=== PATIENT | male | born 1965 | race Caucasian/White ===

== ENCOUNTER 2019-02-05 15:57 | Emergency (ER) | payer MEDICARE, MEDICAID ==
[~2019-02-05] VITALS: Ht 170.2 cm; Wt 125.9 kg
[~2019-02-05 15:57] MED LIST: ALBU8.5H8 INH; CARV3.12 PO; CLON0.3T PO; CLON0.5T23 PO; CLOP75TA15 PO; DILT300C53 PO; DIPH-423 PO; DOCU-273 PO; ERGO500041 PO; FURO-149 PO; HYDR100T27 PO; LANTUS SQ; LEVO100T PO; LINA145C PO; RIFA550T PO; ROSU10TA2 PO; VALS40TA11 PO
[2019-02-05 16:32] VITALS: BP 138/77
== END 2019-02-05 16:35 | disposition home or self-care (01) ==
LOC: ER 15:58
DX: I13.2 Hypertensive heart and chronic kidney disease with heart failure and with stage 5 chronic kidney disease, or end stage renal disease (principal); E11.22 Type 2 diabetes mellitus with diabetic chronic kidney disease; N18.6 End stage renal disease; I50.9 Heart failure, unspecified; J44.9 Chronic obstructive pulmonary disease, unspecified; Z79.4 Long term (current) use of insulin; Z99.2 Dependence on renal dialysis; Z98.890 Other specified postprocedural states; Z98.61 Coronary angioplasty status; Z60.2 Problems related to living alone
CPT/HCPCS: 93005; 99283

== ENCOUNTER 2019-05-10 09:22 | Inpatient (IN) | payer MEDICARE, MEDICAID ==
[~2019-05-10] VITALS: Ht 170.2 cm; Wt 120.0 kg
--- NOTE | 2019-05-10 09:39 | NUR ---
Dr. Shankar at bedside.
[2019-05-10 10:00] LABS: BASOPHILS % (AUTO) 0.5 % (0-1); EOSINOPHILS # (AUTO) 0.1 X10'3 (0-0.9); EOSINOPHILS % (AUTO) 1.4 % (0-6); HEMATOCRIT 41.1 % (42.0-52.0); HEMOGLOBIN 14.6 g/dl (14.0-17.9); LYMPHOCYTES # (AUTO) 0.7 X10'3 (1.1-4.8); LYMPHOCYTES % (AUTO) 8.3 % (21-51); MEAN CORPUSCULAR HGB CONC 35.5 g/dL (33.0-36.5); MEAN CORPUSCULAR VOLUME 93.1 FL (78-98); MEAN PLATELET VOLUME 7.2 FL (7.4-10.4); MONOCYTES # (AUTO) 0.7 X10'3 (0-0.9); MONOCYTES % (AUTO) 7.7 % (2-12); NEUTROPHILS # (AUTO) 7.4 X10'3 (1.8-7.7); NEUTROPHILS % (AUTO) 82.1 % (42-75); PLATELET COUNT 182 X10'3 (140-440); RED BLOOD COUNT 4.42 X10'6 (4.70-6.10); RED CELL DISTRIBUTION WIDTH 15.1 % (11.5-14.5)
[2019-05-10 10:19] LABS: PARTIAL THROMBOPLASTIN TIME 27 SECONDS (22-32)
[2019-05-10 10:20] LABS: ALANINE AMINOTRANSFERASE 8 U/L (12-78); ALBUMIN 3.9 G/DL (3.4-5.0); ALBUMIN/GLOBULIN RATIO 0.8 (1.1-1.5); ALKALINE PHOSPHATASE 112 IU/L (46-116); ANION GAP 12 (8-16); ASPARTATE AMINO TRANSFERASE 10 U/L (10-37); BILIRUBIN,TOTAL 0.6 MG/DL (0.1-1.0); BLOOD UREA NITROGEN 54 MG/DL (7-18); BUN/CREATININE RATIO 6.7 (5.4-32.0); CALCIUM 8.9 MG/DL (8.5-10.1); CHLORIDE 98 MMOL/L (99-107); CREATININE 8.07 MG/DL (0.60-1.10); GLUCOSE 200 MG/DL (70-104); POTASSIUM 4.3 MMOL/L (3.5-5.1); SODIUM 138 MMOL/L (135-145); TOTAL CARBON DIOXIDE 28.2 MMOL/L (24-32); TOTAL PROTEIN 8.5 G/DL (6.4-8.2); eGFR 7 ML/MIN
[2019-05-10 10:37] LABS: MAGNESIUM 1.9 MG/DL (1.5-2.4); PHOSPHORUS 5.7 MG/DL (2.3-4.5)
[2019-05-10] MEDS ORDERED: iohexol 350MG/ML 100ml bottle IV ONE (11:01)
[2019-05-10] MEDS ORDERED: CefTRIAXone/D5W-Rocephin 1gm 50 ML IV ONE (11:05)
[2019-05-10 11:11] LABS: CLARITY,URINE CLEAR (Clear); COLOR,URINE YELLOW (Yellow); GLUCOSE, URINE 250 mg/dl (Neg); KETONES,URINE NEGATIVE (Neg); LEUKOCYTE ESTERASE ,URINE NEGATIVE (Neg); NITRITES, URINE NEGATIVE (Neg); OCCULT BLOOD,URINE SMALL (Neg); PROTEIN,URINE 100 mg/dl (Neg); UA COLLECTION TYPE NON-SPECIFIED
[2019-05-10 11:34] LABS: SQUAMOUS EPITHELIAL CELL,UR FEW /LPF (FEW)
[2019-05-10 11:36] LABS: BACTERIA,URINE 1+ /HPF (Neg); WBC,URINE 30-50 /HPF (0-4)
[2019-05-10] MEDS ORDERED: normal saline 1000ml 250 ML IV PRN (12:13)
[2019-05-10] MEDS ORDERED: heparin 1,000unit/ml 10ml vial 10 ML IV ONE (12:13)
[2019-05-10] MEDS ORDERED: heparin 1,000 units/ml 10ml inj IV ONE (12:15)
[2019-05-10] MEDS ORDERED: acetaminophen 325mg tablet PO PRN ×2 (12:25)
[2019-05-10] MEDS ORDERED: HYDROcodone/acetaminophen 5mg/325mg tablet PO PRN (12:25)
[2019-05-10] MEDS ORDERED: morphine 2 MG/ML inj. syringe IV PRN ×2 (12:25)
[2019-05-10] MEDS ORDERED: ondansetron/PF 4mg/2ml inj IV PRN (12:25)
[2019-05-10] MEDS ORDERED: magnesium hydroxide 30ml (MOM) UD suspension PO PRN (12:25)
[2019-05-10] MEDS ORDERED: HYDROcodone/acetaminophen 10/325mg tab PO PRN (12:25)
[2019-05-10] MEDS ORDERED: mag hydrox/Alum hydrox/simeth 30ml oral suspension PO PRN (12:25)
[2019-05-10] MEDS ORDERED: LOSA100T57 PO (12:29)
[2019-05-10] MEDS ORDERED: MULT1TAB70 PO (12:31)
[2019-05-10] MEDS ORDERED: CETI10TA14 PO (12:36)
[2019-05-10] MEDS ORDERED: GABA-532 PO (12:37)
[2019-05-10] MEDS ORDERED: BUSP10TA3 PO (12:38)
[2019-05-10] MEDS ORDERED: CALC667C5 PO (12:39)
[2019-05-10] MEDS ORDERED: CALC667T6 PO (12:40)
[2019-05-10] MEDS ORDERED: CINA30TA PO (12:44)
[2019-05-10] MEDS ORDERED: TRAZ300T2 PO (12:46)
[2019-05-10] MEDS ORDERED: MESSAGE TO PHARMACY PO ONE (12:55)
[2019-05-10] MEDS ORDERED: dextrose ORAL solution 15 GM/59 ML bottle PO PRN ×2 (12:55)
[2019-05-10] MEDS ORDERED: dextrose 50%-water 50ml dispensing syringe IV PRN ×2 (12:55)
[2019-05-10] MEDS ORDERED: glucagon, human recombinant 1mg kit SUBCUT PRN (12:55)
[2019-05-10] MEDS ORDERED: docusate sod 100mg capsule PO PRN (13:20)
[2019-05-10] MEDS ORDERED: albuterol 2.5 MG/3 ML nebule NEB PRN (13:45)
--- NOTE | 2019-05-10 13:54 | NUR ---
Patient in room ED 6. I have received report from Alejandra in ED and had the opportunity to ask questions and assume patient care.
[2019-05-10 14:12] VITALS: BP 180/88
--- NOTE | 2019-05-10 14:19 | NUR ---
Pt arrived on the floor, spent time speaking with him, tucked in, provided comfort measures.
[2019-05-10 17:00] VITALS: BP 185/86
--- NOTE | 2019-05-10 18:17 | NUR ---
Problems reprioritized. Patient report given, questions answered & plan of care reviewed with Iris Easley
[2019-05-10] MEDS: calcium acetate 667mg (PhosLO) capsule PO SCH (18:37)
[2019-05-10] MEDS: hydrALAZINE 25 MG tablet PO SCH (20:26)
[2019-05-10] MEDS: cloNIDine 0.1 mg tablet PO SCH (20:27)
[2019-05-10] MEDS: diphenhydrAMINE 25mg capsule PO SCH (20:27)
[2019-05-10] MEDS: gabapentin 300mg capsule PO SCH (20:27)
[2019-05-10] MEDS: busPIRone 5mg tablet PO SCH (20:28)
[2019-05-10] MEDS: carVEDilol 12.5mg tablet PO SCH (20:28)
[2019-05-10] MEDS: traZODone 150mg tablet PO SCH (20:29)
[2019-05-10] MEDS: heparin, porcine 5000 units/ml vial SQ SCH (20:30)
[2019-05-10] MEDS ORDERED: calcium acetate 667mg (PhosLO) capsule PO PRN (21:00)
[2019-05-10] MEDS ORDERED: insulin glargine (Lantus) pen - multi-dose SQ SCH (21:00)
[2019-05-10] MEDS: insulin glargine (Lantus) pen - multi-dose SQ SCH (21:19)
[2019-05-10 22:00] VITALS: BP 192/88
[2019-05-10 23:00] VITALS: BP 200/90
--- NOTE | 2019-05-10 23:03 | NUR ---
At 2200 BP was 192/88. Night meds included Hydralazine, Clonidine and other BP medication. re took BP at 2300 for 200/90. Called MD to notify of increase BP and HR. Dr. Ruvalcaba stated that hospitalist service does not usually have dialysis patients and that patient probably lives with very high BP at all times. No new orders.
--- NOTE | 2019-05-11 01:29 | NUR ---
reviewed and agree with [facility]N assessment.
[2019-05-11 05:12] LABS: BASOPHILS % (AUTO) 0.5 % (0-1); EOSINOPHILS # (AUTO) 0.2 X10'3 (0-0.9); EOSINOPHILS % (AUTO) 2.2 % (0-6); HEMATOCRIT 37.1 % (42.0-52.0); HEMOGLOBIN 13.1 g/dl (14.0-17.9); LYMPHOCYTES # (AUTO) 1.3 X10'3 (1.1-4.8); LYMPHOCYTES % (AUTO) 14.4 % (21-51); MEAN CORPUSCULAR HEMOGLOBIN 33.4 PG (27.0-31.0); MEAN CORPUSCULAR HGB CONC 35.4 g/dL (33.0-36.5); MEAN CORPUSCULAR VOLUME 94.5 FL (78-98); MEAN PLATELET VOLUME 7.4 FL (7.4-10.4); MONOCYTES % (AUTO) 10.6 % (2-12); NEUTROPHILS # (AUTO) 6.7 X10'3 (1.8-7.7); NEUTROPHILS % (AUTO) 72.3 % (42-75); PLATELET COUNT 190 X10'3 (140-440); RED BLOOD COUNT 3.92 X10'6 (4.70-6.10); RED CELL DISTRIBUTION WIDTH 15.3 % (11.5-14.5); WHITE BLOOD COUNT 9.2 X10'3 (4.5-11.0)
[2019-05-11 05:46] LABS: ALBUMIN 3.3 G/DL (3.4-5.0); ANION GAP 12 (8-16); BLOOD UREA NITROGEN 58 MG/DL (7-18); BUN/CREATININE RATIO 6.7 (5.4-32.0); CALCIUM 9.6 MG/DL (8.5-10.1); CHLORIDE 98 MMOL/L (99-107); CREATININE 8.66 MG/DL (0.60-1.10); GLUCOSE 149 MG/DL (70-104); POTASSIUM 4.8 MMOL/L (3.5-5.1); SODIUM 135 MMOL/L (135-145); TOTAL CARBON DIOXIDE 24.8 MMOL/L (24-32); eGFR 6 ML/MIN
[2019-05-11 06:00] VITALS: BP 192/88
--- NOTE | 2019-05-11 06:28 | NUR ---
Problems reprioritized. Patient report given, questions answered & plan of care reviewed with MINDY Sandy.
[2019-05-11] MEDS: cetirizine 10mg tablet PO SCH (07:29)
[2019-05-11] MEDS: calcium acetate 667mg (PhosLO) capsule PO SCH ×3 (07:30→17:51)
[2019-05-11] MEDS: diltiazem CD 120mg capsule (once-daily) PO SCH (07:30)
[2019-05-11] MEDS: multivitamins, therapeutics tablet PO SCH (07:30)
[2019-05-11] MEDS: diltiazem CD 180mg cap (once-daily) PO SCH (07:32)
[2019-05-11] MEDS: busPIRone 5mg tablet PO SCH ×3 (07:32→20:56)
[2019-05-11] MEDS: losartan 50mg tablet PO SCH (07:32)
[2019-05-11] MEDS: clopidogrel 75mg tablet PO SCH (07:33)
[2019-05-11] MEDS: atorvastatin 20mg tablet PO SCH (07:33)
[2019-05-11] MEDS: furosemide 40mg tablet PO SCH (07:33)
[2019-05-11] MEDS: carVEDilol 12.5mg tablet PO SCH ×2 (07:34→20:00)
[2019-05-11] MEDS: cloNIDine 0.1 mg tablet PO SCH ×2 (07:34→20:00)
[2019-05-11] MEDS: hydrALAZINE 25 MG tablet PO SCH ×3 (07:34→21:00)
[2019-05-11] MEDS: CefTRIAXone/D5W-Rocephin 1gm 50 ML IV SCH (07:35)
[2019-05-11] MEDS: gabapentin 300mg capsule PO SCH ×3 (07:35→20:56)
[2019-05-11] MEDS: levoTHYROXINE 100mcg tablet PO SCH (07:39)
[2019-05-11] MEDS: heparin, porcine 5000 units/ml vial SQ SCH ×2 (07:39→20:55)
[2019-05-11] MEDS ORDERED: Linaclotide (Linzess) 1 CAP PO SCH (08:00)
[2019-05-11 10:00] VITALS: BP 181/82
--- NOTE | 2019-05-11 10:24 | NUR ---
F/u for DM consult: Patient's A1c is 6.8, DM education not warranted at this time. Will continue to follow. Addendum: 05/11/19 at [address] Amended: Links added.
[2019-05-11] MEDS: insulin Lispro (HumaLOG) vial - multi-dose SQ SCH ×2 (13:57→18:50)
[2019-05-11 18:00] VITALS: BP 108/54
--- NOTE | 2019-05-11 18:15 | NUR ---
Received report from Vika GUILLEN. assumed care of patient.
--- NOTE | 2019-05-11 20:00 | NUR ---
Patient refused CPAP machine in this facility and stated that someone could bring his CPAP machine tomorrow.
--- NOTE | 2019-05-11 20:00 | NUR ---
Around this time I called the automation developer physician for patient to let her know that the sbp dropped to 97/48 and that pt's b/p medications were held. [facility] COORDINATOR said b/p is ok for now but if it drops lower to call her and she will give orders.
[2019-05-11 20:30] VITALS: BP 97/48
[2019-05-11] MEDS: lactobacillus rhamnosus 10,000 MMU CELLS/CAPSULE PO SCH (20:56)
[2019-05-11] MEDS: diphenhydrAMINE 25mg capsule PO SCH (20:57)
[2019-05-11] MEDS: traZODone 150mg tablet PO SCH (20:58)
[2019-05-11] MEDS: insulin glargine (Lantus) pen - multi-dose SQ SCH (21:05)
[2019-05-11 22:00] VITALS: BP 127/51
[2019-05-12 05:31] LABS: BASOPHILS # (AUTO) 0.1 X10'3 (0-0.2); BASOPHILS % (AUTO) 0.8 % (0-1); EOSINOPHILS # (AUTO) 0.2 X10'3 (0-0.9); EOSINOPHILS % (AUTO) 2.5 % (0-6); HEMATOCRIT 35.9 % (42.0-52.0); HEMOGLOBIN 12.5 g/dl (14.0-17.9); LYMPHOCYTES # (AUTO) 1.1 X10'3 (1.1-4.8); LYMPHOCYTES % (AUTO) 11.8 % (21-51); MEAN CORPUSCULAR HEMOGLOBIN 33.3 PG (27.0-31.0); MEAN CORPUSCULAR VOLUME 95.3 FL (78-98); MEAN PLATELET VOLUME 7.5 FL (7.4-10.4); NEUTROPHILS # (AUTO) 7.3 X10'3 (1.8-7.7); NEUTROPHILS % (AUTO) 74.9 % (42-75); PLATELET COUNT 200 X10'3 (140-440); RED BLOOD COUNT 3.76 X10'6 (4.70-6.10); RED CELL DISTRIBUTION WIDTH 15.5 % (11.5-14.5); WHITE BLOOD COUNT 9.7 X10'3 (4.5-11.0)
[2019-05-12 05:52] LABS: ALBUMIN 3.2 G/DL (3.4-5.0); ANION GAP 6 (8-16); BLOOD UREA NITROGEN 37 MG/DL (7-18); BUN/CREATININE RATIO 5.8 (5.4-32.0); CHLORIDE 99 MMOL/L (99-107); CREATININE 6.34 MG/DL (0.60-1.10); GLUCOSE 146 MG/DL (70-104); POTASSIUM 4.3 MMOL/L (3.5-5.1); SODIUM 136 MMOL/L (135-145); TOTAL CARBON DIOXIDE 30.8 MMOL/L (24-32); eGFR 9 ML/MIN
[2019-05-12 06:00] VITALS: BP 106/30
--- NOTE | 2019-05-12 06:21 | NUR ---
Gave report to Sima GUILLEN.
[2019-05-12] MEDS: gabapentin 300mg capsule PO SCH (07:40)
[2019-05-12] MEDS: clopidogrel 75mg tablet PO SCH (07:40)
[2019-05-12] MEDS: CefTRIAXone/D5W-Rocephin 1gm 50 ML IV SCH (07:40)
[2019-05-12] MEDS: atorvastatin 20mg tablet PO SCH (07:40)
[2019-05-12] MEDS: lactobacillus rhamnosus 10,000 MMU CELLS/CAPSULE PO SCH (07:40)
[2019-05-12] MEDS: multivitamins, therapeutics tablet PO SCH (07:40)
[2019-05-12] MEDS: carVEDilol 12.5mg tablet PO SCH (07:40)
[2019-05-12] MEDS: diltiazem CD 180mg cap (once-daily) PO SCH (07:40)
[2019-05-12] MEDS: diltiazem CD 120mg capsule (once-daily) PO SCH (07:41)
[2019-05-12] MEDS: levoTHYROXINE 100mcg tablet PO SCH (07:41)
[2019-05-12] MEDS: calcium acetate 667mg (PhosLO) capsule PO SCH (07:41)
[2019-05-12] MEDS: cetirizine 10mg tablet PO SCH (07:41)
[2019-05-12] MEDS: busPIRone 5mg tablet PO SCH (07:41)
[2019-05-12] MEDS: furosemide 40mg tablet PO SCH (07:41)
[2019-05-12] MEDS: losartan 50mg tablet PO SCH (07:42)
[2019-05-12] MEDS: cloNIDine 0.1 mg tablet PO SCH (07:42)
[2019-05-12] MEDS: heparin, porcine 5000 units/ml vial SQ SCH (07:42)
[2019-05-12] MEDS: hydrALAZINE 25 MG tablet PO SCH (07:42)
[2019-05-12] MEDS ORDERED: SULF1TAB49 PO (08:58)
== END 2019-05-12 10:08 | disposition home or self-care (01) | DRG 690 ==
LOC: ER 09:22 → ED HOLD 12:32 → ORTHO 4S 14:15
PROVIDERS: ADMIT Internal Medicine; ATTEND Internal Medicine
PROC: B32T1ZZ Computerized Tomography (CT Scan) of Left Pulmonary Artery using Low Osmolar Contrast (ICD-10-PCS; 2019-05-10)
PROC: B3201ZZ Computerized Tomography (CT Scan) of Thoracic Aorta using Low Osmolar Contrast (ICD-10-PCS; 2019-05-10)
PROC: B32S1ZZ Computerized Tomography (CT Scan) of Right Pulmonary Artery using Low Osmolar Contrast (ICD-10-PCS; 2019-05-10)
PROC: 5A1D70Z Performance of Urinary Filtration, Intermittent, Less than 6 Hours Per Day (ICD-10-PCS; principal; 2019-05-11)
DX: N10 Acute pyelonephritis (principal); I13.2 Hypertensive heart and chronic kidney disease with heart failure and with stage 5 chronic kidney disease, or end stage renal disease; I31.3 Pericardial effusion (noninflammatory); Z68.41 Body mass index [BMI] 40.0-44.9, adult; N18.6 End stage renal disease; E87.70 Fluid overload, unspecified; E03.9 Hypothyroidism, unspecified; E11.22 Type 2 diabetes mellitus with diabetic chronic kidney disease; E11.42 Type 2 diabetes mellitus with diabetic polyneuropathy; E66.01 Morbid (severe) obesity due to excess calories; F41.9 Anxiety disorder, unspecified; G47.33 Obstructive sleep apnea (adult) (pediatric); R91.1 Solitary pulmonary nodule; E78.5 Hyperlipidemia, unspecified; B95.7 Other staphylococcus as the cause of diseases classified elsewhere; I50.9 Heart failure, unspecified; J44.9 Chronic obstructive pulmonary disease, unspecified; Z88.0 Allergy status to penicillin; Z88.1 Allergy status to other antibiotic agents; Z79.02 Long term (current) use of antithrombotics/antiplatelets; Z79.4 Long term (current) use of insulin; Z79.899 Other long term (current) drug therapy; Z83.3 Family history of diabetes mellitus; Z87.891 Personal history of nicotine dependence; Z89.512 Acquired absence of left leg below knee; Z99.2 Dependence on renal dialysis; Z86.718 Personal history of other venous thrombosis and embolism; Z98.61 Coronary angioplasty status
CPT/HCPCS: 36415; 71045; 71260; 71275; 80048; 80053; 81001; 82948; 83036; 83605; 83735; 84100; 84484; 85025; 85610; 85730; 87040; 87077; 87081; 87088; 87186; 93005; 93306; 94760; 96365; 99291; G0257; G0378; J0696; J1644; J1815; J2405; Q0163; Q9967

== ENCOUNTER 2020-06-06 16:23 | Emergency (ER) | payer MEDICARE, MEDICAID ==
[~2020-06-06] VITALS: Ht 170.2 cm; Wt 122.3 kg
[~2020-06-06 16:23] MED LIST changes: +BUSP10TA3 PO; +CALC667C5 PO; +CALC667T6 PO; +CETI10TA14 PO; +CINA30TA PO; -CLON0.5T23 PO; -ERGO500041 PO; +GABA-532 PO; +LOSA100T57 PO; +MULT1TAB70 PO; -RIFA550T PO; +TRAZ300T2 PO; -VALS40TA11 PO
[2020-06-06 17:44] LABS: BASOPHILS # (AUTO) 0.2 X10'3 (0-0.2); BASOPHILS % (AUTO) 1.5 % (0-1); EOSINOPHILS # (AUTO) 0.1 X10'3 (0-0.9); EOSINOPHILS % (AUTO) 0.8 % (0-6); HEMATOCRIT 39.3 % (42.0-52.0); HEMOGLOBIN 13.7 g/dl (14.0-17.9); LYMPHOCYTES % (AUTO) 9.4 % (21-51); MEAN CORPUSCULAR HEMOGLOBIN 34.2 PG (27.0-31.0); MEAN CORPUSCULAR HGB CONC 34.9 g/dL (33.0-36.5); MEAN CORPUSCULAR VOLUME 97.8 FL (78-98); MEAN PLATELET VOLUME 7.7 FL (7.4-10.4); MONOCYTES # (AUTO) 0.6 X10'3 (0-0.9); NEUTROPHILS # (AUTO) 8.7 X10'3 (1.8-7.7); NEUTROPHILS % (AUTO) 82.3 % (42-75); PLATELET COUNT 250 X10'3 (140-440); RED BLOOD COUNT 4.01 X10'6 (4.70-6.10); RED CELL DISTRIBUTION WIDTH 15.7 % (11.5-14.5); WHITE BLOOD COUNT 10.6 X10'3 (4.5-11.0)
[2020-06-06 17:52] LABS: CHLORIDE 97 MMOL/L (99-107); GLUCOSE 247 MG/DL (70-104); POTASSIUM 3.7 MMOL/L (3.5-5.1); SODIUM 137 MMOL/L (135-145); TOTAL CARBON DIOXIDE 32.3 MMOL/L (24-32)
[2020-06-06 17:53] LABS: ALANINE AMINOTRANSFERASE 21 U/L (12-78); ALBUMIN 3.6 G/DL (3.4-5.0); ALBUMIN/GLOBULIN RATIO 0.9 (1.1-1.5); ALKALINE PHOSPHATASE 125 IU/L (46-116); ANION GAP 8 (8-16); ASPARTATE AMINO TRANSFERASE 14 U/L (10-37); BILIRUBIN,TOTAL 0.5 MG/DL (0.1-1.0); BLOOD UREA NITROGEN 25 MG/DL (7-18); BUN/CREATININE RATIO 4.8 (5.4-32.0); CALCIUM 8.3 MG/DL (8.5-10.1); CREATININE 5.26 MG/DL (0.60-1.10); LIPASE 209 U/L (73-393); TOTAL PROTEIN 7.8 G/DL (6.4-8.2); eGFR 12 ML/MIN
[2020-06-06 19:08] VITALS: BP 142/78
== END 2020-06-06 19:27 | disposition home or self-care (01) ==
LOC: ER 16:24
DX: R42 Dizziness and giddiness (principal); I11.0 Hypertensive heart disease with heart failure; I50.9 Heart failure, unspecified; N18.9 Chronic kidney disease, unspecified; I12.0 Hypertensive chronic kidney disease with stage 5 chronic kidney disease or end stage renal disease; E11.22 Type 2 diabetes mellitus with diabetic chronic kidney disease; E11.42 Type 2 diabetes mellitus with diabetic polyneuropathy; J44.9 Chronic obstructive pulmonary disease, unspecified; Z98.61 Coronary angioplasty status; Z98.890 Other specified postprocedural states; Z88.0 Allergy status to penicillin; Z88.1 Allergy status to other antibiotic agents; Z88.8 Allergy status to other drugs, medicaments and biological substances; Z79.4 Long term (current) use of insulin; Z79.899 Other long term (current) drug therapy; Z99.2 Dependence on renal dialysis; Z89.512 Acquired absence of left leg below knee; Z87.891 Personal history of nicotine dependence
CPT/HCPCS: 71045; 80053; 83690; 84484; 85025; 93005; 99285

== ENCOUNTER 2020-06-19 10:56 | Emergency (ER) | payer MEDICARE, MEDICAID ==
[~2020-06-19] VITALS: Ht 170.2 cm; Wt 120.0 kg
[2020-06-19 12:21] LABS: ABG BASE EXCESS 3.4 mmol/L (-2.0-2.0); ABG HCO3 28.3 mmol/L (22.0-26.0); ABG OXYGEN SATURATION 92.6 % (94-97); ABG PO2 (T) 66.7 mmHg (75.0-100.0); FCOHb 1.8 % (0.0-3.9); FLOW 1 L/min; FMetHb 0.3 % (0.0-1.5); FO2Hb 90.7 % (94-97); TOTAL HEMOGLOBIN 13.8 G/dl (14.0-18.0)
[2020-06-19 12:21] LABS: BASOPHILS # (AUTO) 0.1 X10'3 (0-0.2); BASOPHILS % (AUTO) 0.7 % (0-1); EOSINOPHILS # (AUTO) 0.2 X10'3 (0-0.9); EOSINOPHILS % (AUTO) 1.5 % (0-6); HEMATOCRIT 39.7 % (42.0-52.0); HEMOGLOBIN 13.8 g/dl (14.0-17.9); LYMPHOCYTES # (AUTO) 1.2 X10'3 (1.1-4.8); MEAN CORPUSCULAR HEMOGLOBIN 33.5 PG (27.0-31.0); MEAN CORPUSCULAR HGB CONC 34.7 g/dL (33.0-36.5); MEAN CORPUSCULAR VOLUME 96.5 FL (78-98); MEAN PLATELET VOLUME 7.3 FL (7.4-10.4); MONOCYTES # (AUTO) 0.7 X10'3 (0-0.9); MONOCYTES % (AUTO) 7.4 % (2-12); NEUTROPHILS # (AUTO) 7.9 X10'3 (1.8-7.7); NEUTROPHILS % (AUTO) 78.4 % (42-75); PLATELET COUNT 233 X10'3 (140-440); RED BLOOD COUNT 4.11 X10'6 (4.70-6.10); RED CELL DISTRIBUTION WIDTH 15.2 % (11.5-14.5)
[2020-06-19 12:31] LABS: ALANINE AMINOTRANSFERASE 15 U/L (12-78); ALBUMIN 3.8 G/DL (3.4-5.0); ALBUMIN/GLOBULIN RATIO 0.9 (1.1-1.5); ALKALINE PHOSPHATASE 119 IU/L (46-116); ANION GAP 10 (8-16); ASPARTATE AMINO TRANSFERASE 9 U/L (10-37); BILIRUBIN,TOTAL 0.6 MG/DL (0.1-1.0); BLOOD UREA NITROGEN 28 MG/DL (7-18); BUN/CREATININE RATIO 4.4 (5.4-32.0); CALCIUM 8.8 MG/DL (8.5-10.1); CHLORIDE 96 MMOL/L (99-107); GLUCOSE 199 MG/DL (70-104); MAGNESIUM 2.3 MG/DL (1.5-2.4); POTASSIUM 4.2 MMOL/L (3.5-5.1); SODIUM 138 MMOL/L (135-145); TOTAL CARBON DIOXIDE 32.4 MMOL/L (24-32); TOTAL PROTEIN 8.1 G/DL (6.4-8.2); eGFR 9 ML/MIN
[2020-06-19 13:22] LABS: CLARITY,URINE SLIGHTLY CLOUDY (Clear); COLOR,URINE YELLOW (Yellow); GLUCOSE, URINE 100 mg/dl (Neg); KETONES,URINE NEGATIVE (Neg); LEUKOCYTE ESTERASE ,URINE TRACE (Neg); NITRITES, URINE NEGATIVE (Neg); OCCULT BLOOD,URINE TRACE-INTACT (Neg); PROTEIN,URINE 100 mg/dl (Neg)
[2020-06-19 13:29] LABS: UA COLLECTION TYPE STRAIGHT CATH
[2020-06-19 13:35] LABS: SQUAMOUS EPITHELIAL CELL,UR NONE SEEN /LPF (FEW)
[2020-06-19 13:36] VITALS: BP 136/69
[2020-06-19 13:37] LABS: FINE GRANULAR CAST 0-3 /LPF (NEGATIVE)
[2020-06-19 13:38] LABS: WBC CLUMPS,URINE FEW /HPF (NEGATIVE); WBC,URINE 20-30 /HPF (0-4)
[2020-06-19 13:39] LABS: BACTERIA,URINE FEW /HPF (Neg)
[2020-06-19] MEDS ORDERED: CefTRIAXone/D5W-Rocephin 1gm 50 ML IV ONE (14:00)
[2020-06-19] MEDS ORDERED: CEPH500C5 PO (14:02)
[2020-06-19] MEDS ORDERED: CefTRIAXone 1000mg IM Kit (w/lidocaine diluent) IM ONE (14:10)
== END 2020-06-19 14:36 | disposition home or self-care (01) ==
LOC: ER 10:57
DX: N39.0 Urinary tract infection, site not specified (principal); R11.2 Nausea with vomiting, unspecified; I50.9 Heart failure, unspecified; I10 Essential (primary) hypertension; J44.9 Chronic obstructive pulmonary disease, unspecified; E11.9 Type 2 diabetes mellitus without complications; Z98.890 Other specified postprocedural states; Z88.0 Allergy status to penicillin; Z88.1 Allergy status to other antibiotic agents; Z88.6 Allergy status to analgesic agent
CPT/HCPCS: 36415; 36600; 71045; 74176; 80053; 81001; 82803; 83605; 83735; 84145; 85018; 85025; 87040; 87088; 96372; 99285; J0696; 93005

== ENCOUNTER 2020-09-09 08:13 | Emergency (ER) | payer MEDICARE, MEDICAID ==
[~2020-09-09] VITALS: Ht 170.2 cm; Wt 122.7 kg
[2020-09-09 09:17] LABS: BASOPHILS # (AUTO) 0.1 X10'3 (0-0.2); BASOPHILS % (AUTO) 0.7 % (0-1); EOSINOPHILS # (AUTO) 0.2 X10'3 (0-0.9); EOSINOPHILS % (AUTO) 2.2 % (0-6); HEMATOCRIT 40.6 % (42.0-52.0); HEMOGLOBIN 13.8 g/dl (14.0-17.9); LYMPHOCYTES # (AUTO) 1.2 X10'3 (1.1-4.8); LYMPHOCYTES % (AUTO) 16.4 % (21-51); MEAN CORPUSCULAR HEMOGLOBIN 32.5 PG (27.0-31.0); MEAN CORPUSCULAR HGB CONC 33.9 g/dL (33.0-36.5); MEAN CORPUSCULAR VOLUME 95.8 FL (78-98); MEAN PLATELET VOLUME 7.5 FL (7.4-10.4); MONOCYTES # (AUTO) 0.8 X10'3 (0-0.9); MONOCYTES % (AUTO) 10.4 % (2-12); NEUTROPHILS # (AUTO) 5.3 X10'3 (1.8-7.7); NEUTROPHILS % (AUTO) 70.3 % (42-75); PLATELET COUNT 194 X10'3 (140-440); RED BLOOD COUNT 4.24 X10'6 (4.70-6.10); RED CELL DISTRIBUTION WIDTH 15.6 % (11.5-14.5); WHITE BLOOD COUNT 7.5 X10'3 (4.5-11.0)
[2020-09-09 09:31] LABS: ALANINE AMINOTRANSFERASE 11 U/L (12-78); ALBUMIN 3.7 G/DL (3.4-5.0); ALBUMIN/GLOBULIN RATIO 0.9 (1.1-1.5); ALKALINE PHOSPHATASE 91 IU/L (46-116); ANION GAP 10 (8-16); ASPARTATE AMINO TRANSFERASE 5 U/L (10-37); BILIRUBIN,TOTAL 0.5 MG/DL (0.1-1.0); BLOOD UREA NITROGEN 40 MG/DL (7-18); BUN/CREATININE RATIO 5.7 (5.4-32.0); CALCIUM 9.1 MG/DL (8.5-10.1); CHLORIDE 99 MMOL/L (99-107); GLUCOSE 157 MG/DL (70-104); MAGNESIUM 1.9 MG/DL (1.5-2.4); POTASSIUM 4.7 MMOL/L (3.5-5.1); SODIUM 139 MMOL/L (135-145); TOTAL CARBON DIOXIDE 30.2 MMOL/L (24-32); TOTAL PROTEIN 7.7 G/DL (6.4-8.2); eGFR 8 ML/MIN
[2020-09-09 10:15] LABS: CLARITY,URINE CLEAR (Clear); COLOR,URINE YELLOW (Yellow); GLUCOSE, URINE 100 mg/dl (Neg); KETONES,URINE NEGATIVE (Neg); LEUKOCYTE ESTERASE ,URINE NEGATIVE (Neg); NITRITES, URINE NEGATIVE (Neg); OCCULT BLOOD,URINE TRACE-INTACT (Neg); PROTEIN,URINE 100 mg/dl (Neg)
[2020-09-09 10:16] LABS: UA COLLECTION TYPE STRAIGHT CATH
[2020-09-09 10:37] LABS: BACTERIA,URINE FEW /HPF (Neg); HYALINE CASTS 0-3 /LPF (NEGATIVE); RBC,URINE 0-2 /HPF (0-2); SQUAMOUS EPITHELIAL CELL,UR FEW /LPF (FEW); WBC,URINE 0-4 /HPF (0-4)
[2020-09-09] MEDS ORDERED: normal saline 1000ML IV soln IVB ONE (11:05)
[2020-09-09 13:01] VITALS: BP 153/86
== END 2020-09-09 13:23 | disposition home or self-care (01) ==
LOC: ER 08:13
DX: R10.84 Generalized abdominal pain (principal); R00.0 Tachycardia, unspecified; E11.42 Type 2 diabetes mellitus with diabetic polyneuropathy; I11.0 Hypertensive heart disease with heart failure; I50.9 Heart failure, unspecified; J44.9 Chronic obstructive pulmonary disease, unspecified; Z87.440 Personal history of urinary (tract) infections; Z86.718 Personal history of other venous thrombosis and embolism; Z98.890 Other specified postprocedural states; Z60.2 Problems related to living alone; Z88.1 Allergy status to other antibiotic agents; Z88.0 Allergy status to penicillin; Z88.6 Allergy status to analgesic agent; Z79.4 Long term (current) use of insulin; Z79.899 Other long term (current) drug therapy
CPT/HCPCS: 36415; 74176; 80053; 81001; 83735; 85025; 93005; 99285; J7030